=== PATIENT | male | born 1970 | race African-American/Black ===

== ENCOUNTER 2020-04-10 19:33 | Emergency (ER) | payer OTHER ==
[~2020-04-10] VITALS: Ht 190.5 cm; Wt 88.9 kg
[2020-04-10] MEDS ORDERED: ATENOLOL 25 MG25 M1 PO (20:12)
[2020-04-10] MEDS ORDERED: METFORMIN HCL500 M3 PO (20:13)
[2020-04-10 20:43] LABS: URINE BILIRUBIN NEGATIVE (Negative); URINE BLOOD 1+ (Negative); URINE CLARITY CLEAR; URINE COLOR YELLOW; URINE GLUCOSE-RANDOM* NEGATIVE (Negative); URINE KETONES NEGATIVE (Negative); URINE LEUKOCYTES-REFLEX NEGATIVE (Negative); URINE NITRITE-REFLEX NEGATIVE (Negative); URINE PROTEIN (DIPSTICK) NEGATIVE (Negative); URINE SPECIFIC GRAVITY 1.025 (1.005-1.035); URINE UROBILINOGEN 0.2 E.U./dl (0.2-1.0)
[2020-04-10 20:46] LABS: ABSOLUTE NEUTROPHILS 6.3 thou/uL (1.4-8.2); BASOPHILS 0.4 % (0.0-2.0); EOSINOPHILS 0.4 % (0.0-3.0); HEMATOCRIT 42.1 % (42.0-52.0); LYMPHOCYTES 3.7 % (24.0-44.0); MCH 29.7 pg (26.0-34.0); MCHC 33.1 g/dL (28.0-37.0); MCV 89.6 fL (80.0-100.0); MONOCYTES 2.8 % (1.0-8.0); PLATELET COUNT 343 thou/uL (150-400); POLYS 92.7 % (36.0-66.0); RDW 13.8 % (10.5-14.5); WBC 6.8 thou/uL (4.0-11.0)
[2020-04-10 20:51] LABS: BACTERIA-REFLEX 1-9 Few /HPF (None Seen); CASTS None Seen /LPF (None Seen); SQUAMOUS 0-3 Few /LPF (0-3); URINE RBC 3-10 Few /HPF (0-2); URINE WBC-REFLEX 0-5 Rare /HPF (0-5)
[2020-04-10 20:52] LABS: URIC ACID CRYSTALS 4-10 Moderate /LPF (None Seen)
[2020-04-10 20:53] LABS: ANION GAP 11 mmol/L (7-16); BUN 16 mg/dL (7-18); CALCIUM 8.9 mg/dL (8.5-10.1); CHLORIDE 101 mmol/L (98-107); CO2 26 mmol/L (21-32); CREATININE 1.2 mg/dL (0.7-1.3); GLUCOSE 154 mg/dL (74-106); POTASSIUM 3.7 mmol/L (3.5-5.1); SODIUM 138 mmol/L (136-145)
[2020-04-10 21:03] LABS: ALBUMIN 3.9 g/dL (3.4-5.0); SGOT 14 U/L (15-37); SGPT 28 U/L (16-63); TOTAL BILIRUBIN 0.6 mg/dL (0.2-1.0); TOTAL PROTEIN 7.8 g/dL (6.4-8.2); TROPONIN-I <0.06 ng/mL (<0.06)
[2020-04-10 23:19] VITALS: BP 135/84
--- NOTE | 2020-04-11 07:08 | EKG ---
[address] [address] ELECTROCARDIOGRAM REPORT Name: LAUREL CLAYTON V [id number] Admission: 04/10/20 Attend Phys: Discharge: 04/10/20 Date of : 72 Report #: [id number] [facility] ED Test Date: 2020-04-10 Test Time: 20:37:57 Pat Name: LAUREL CLAYTON Department: Room: Gender: Manager General: DENG : 1970 Requested By: Anette Herrera Order Number: [id number] MD: Ricardo Cabral Measurements Intervals [place] Rate: 90 P: 16 ME: 152 QRS: 41 QRSD: 93 T: 59 QT: 319 QTc: 391 Interpretive Statements Sinus rhythm Anteroseptal infarct, old No previous ECG available for comparison Electronically Signed On 04-11-2020 7:08:34 POINTER HELPER by Ricardo Cabral [email or web address] <ELECTRONICALLY SIGNED> By: Ricardo Cabral MD, [facility] 04/11/20707 36 36 Ricardo Cabral MD, FACC /EPI
== END 2020-04-10 23:35 | disposition home or self-care (01) ==
LOC: ER 19:33
PROVIDERS: Nurse Practitioner Family
DX: E86.0 Dehydration (principal); R19.7 Diarrhea, unspecified; J06.9 Acute upper respiratory infection, unspecified; B97.89 Other viral agents as the cause of diseases classified elsewhere; E11.9 Type 2 diabetes mellitus without complications; I10 Essential (primary) hypertension; Z79.899 Other long term (current) drug therapy; Z88.8 Allergy status to other drugs, medicaments and biological substances; Z20.822 Contact with and (suspected) exposure to COVID-19